=== PATIENT | male | born 1955 | race Caucasian/White ===

== ENCOUNTER 2018-04-27 00:09 | Emergency (ER) | payer BC ==
[~2018-04-27] VITALS: Ht 170.2 cm; Wt 85.3 kg
[2018-04-27 00:18] VITALS: BP_SYST 149
[2018-04-27] MEDS ORDERED: fentaNYL CITRATE/PF 100 MCG/2 ML AMP IM ONE (00:45)
[2018-04-27] MEDS ORDERED: NS 500 ML IV ONE (01:30)
[2018-04-27] MEDS ORDERED: MORPHINE 2 MG/ML INJ. SYRINGE IVP ONE ×2 (01:30→02:30)
[2018-04-27 02:16] LABS: CREATININE 0.95 mg/dL (0.55-1.30)
[2018-04-27 02:22] LABS: ALBUMIN 3.9 g/dL (3.4-4.8); HEMATOCRIT 44.3 % (36-54); HEMOGLOBIN 14.4 g/dL (14.0-18.0); MEAN CORPUSCULAR HEMOGLOBIN 30 pg (27-31); MEAN CORPUSCULAR HGB CONC 33 % (32-36); MEAN CORPUSCULAR VOLUME 93 fL (79.0-98.0); PLATELET COUNT (AUTO) 237 K/uL (130-430); RED BLOOD CELL COUNT(AUTO) 4.76 MIL/uL (4.2-6.2); RED CELL DISTRIBUTION WIDTH 12.5 % (9.0-15.0); TOTAL BILIRUBIN 0.5 mg/dL (0.0-1.0); WHITE BLOOD COUNT (AUTO) 6.6 K/uL (4.8-10.8)
[2018-04-27] MEDS ORDERED: methylPREDNISolone SOD SUCC/PF 62.5 MG/ML VIAL IVP ONE (02:30)
[2018-04-27 03:15] LABS: BASOPHILS % (MANUAL) 0 % (0-2); EOSINOPHILS % (MANUAL) 1 % (0-7); LYMPHOCYTES % (MANUAL) 41 % (20-46); MONOCYTES % (MANUAL) 5 % (0-11)
[2018-04-27 03:39] VITALS: BP_SYST 128
== END 2018-04-27 03:44 | disposition home or self-care (01) ==
LOC: SED 00:09
DX: R10.30 Lower abdominal pain, unspecified (principal); I10 Essential (primary) hypertension; Z90.89 Acquired absence of other organs
CPT/HCPCS: 36415; 72192; 80053; 85007; 85027; 96372; 96374; 96375; 96376; 99285; J2270; J2930; J3010; J7040